=== PATIENT | female | born 1970 | race African-American/Black ===

== ENCOUNTER → 2016-10-15 | Outpatient (CLI) | payer MEDICAID ==
[2016-10-15 11:25] LABS: ALBUMIN 4.2 GM/DL (3.2-5.2); ALBUMIN/GLOBULIN RATIO 1.35 (1.00-1.93); ALKALINE PHOSPHATASE 70 U/L (45-117); ALT/SGPT 14 U/L (12-78); ANION GAP 6 MEQ/L (8-16); AST/SGOT 14 U/L (15-37); BILIRUBIN,TOTAL 0.4 MG/DL (0.2-1.0); BLOOD UREA NITROGEN 11 MG/DL (7-18); CALCIUM LEVEL 8.9 MG/DL (8.5-10.1); CARBON DIOXIDE LEVEL 29 MEQ/L (21-32); CHLORIDE LEVEL 109 MEQ/L (98-107); CHOLESTEROL LEVEL 138 MG/DL (<200); FREE T4 1.03 NG/DL (0.76-1.46); GLOMERULAR FILTRATION RATE > 60.0 (>58); GLUCOSE, FASTING 90 MG/DL (70-105); POTASSIUM SERUM 4.2 MEQ/L (3.5-5.1); SODIUM LEVEL 144 MEQ/L (136-145); TOTAL PROTEIN 7.3 GM/DL (6.4-8.2); TRIGLYCERIDES LEVEL 48 MG/DL (<150)
[2016-10-16 10:33] LABS: FOLLICLE STIMULATING HORMONE 120.6 mIU/mL; LUTEINIZING HORMONE 74.3 mIU/mL
== END ==
LOC: M WUC 08:27
PROVIDERS: ATTEND Nurse Practitioner Family
DX: N92.5 Other specified irregular menstruation (principal); E04.0 Nontoxic diffuse goiter; Z13.220 Encounter for screening for lipoid disorders

== ENCOUNTER → 2017-01-13 | Outpatient (CLI) | payer OTHER ==
--- NOTE | 2017-01-13 16:23 | ECHO ---
DATE OF PROCEDURE: 01/13/2017 REFERRING PHYSICIAN: Iram Bolden MD INDICATION: Systemic hypertension. HEIGHT: 168 cm WEIGHT: 50.8 kg 2D MEASUREMENTS: LVOT: 1.7 cm Left atrium: 1.8 cm Aortic root: 2.5 cm Ventricular septum: 0.78 cm Posterior wall: 0.78 cm Left ventricle diastole: 3.8 cm Inferior vena cava: 0.6 cm (greater than 50% respiratory variation) DOPPLER MEASUREMENTS: Aortic valve velocity: 110 cm/s LVOT velocity: 73.7 cm/s LVOT VTI; 13.7 cm Mitral E velocity: 66.1 cm/s Mitral A velocity: 60.2 cm/s Mitral deceleration time: 289 ms Mild tricuspid regurgitation. Estimated right ventricle systolic pressure: 29 mmHg assuming a right atrial pressure of 5 mmHg. MITRAL ANNULAR TISSUE DOPPLER: E prime septal: 6.0 cm/s E prime lateral: 9.6 cm/s DESCRIPTION: Rhythm was sinus. Image quality was fair. No pericardial effusion. This is a 2D, M-mode, color flow Doppler and pulse wave Doppler examination and included mitral annular tissue Doppler. CONCLUSIONS: 1. Normal left ventricle internal dimensions and wall thickness. Normal regional left ventricle (LV) wall motion and wall thickening. Normal LV systolic function. Left ventricular ejection fraction (LVEF) 70% by visual estimate. Probably normal left ventricle (LV) diastolic function. 2. No Doppler evidence of coarctation of the aorta. The aortic root normal in size at the level of the sinus of Valsalva. 3. Central venous pressure estimated to be 5 mmHg at the time of the study. 4. Otherwise normal appearing echocardiogram Doppler.
== END ==
LOC: M CARPUL 09:16
PROVIDERS: ATTEND Family Medicine
DX: I10 Essential (primary) hypertension (principal)

== ENCOUNTER → 2017-11-24 | Outpatient (CLI) | payer OTHER | LOC: M SMT 08:42 | DX: G62.9 Polyneuropathy, unspecified (principal); M19.012 Primary osteoarthritis, left shoulder | CPT/HCPCS: 73030 ==

== ENCOUNTER → 2018-08-31 | Outpatient (REF) | payer OTHER ==
[2018-08-31 19:02] LABS: BASO % 0.5 % (0.0-1.0); EOS # 0.1 10^3/uL (0.0-0.50); EOS % 1.5 % (0.0-3.0); HEMATOCRIT 31.7 % (36.0-47.0); HEMOGLOBIN 10.2 g/dl (12.0-15.5); LYMPH # 2.5 10^3/uL (1.5-4.5); LYMPH % 30.1 % (24.0-44.0); MEAN CORPUSCULAR HEMOGLOBIN 28.1 pg (27.0-33.0); MEAN CORPUSCULAR HGB CONC 32.2 g/dl (32.0-36.5); MEAN CORPUSCULAR VOLUME 87.3 fl (80.0-96.0); MONO # 0.7 10^3/uL (0.0-0.8); MONO % 8.1 % (0.0-5.0); NEUTROPHILS # 4.9 10^3/uL (1.8-7.7); NEUTROPHILS % 59.3 % (36.0-66.0); PLATELET COUNT, AUTOMATED 341 10^3/uL (150-450); RED BLOOD COUNT 3.63 10^6/uL (4.00-5.40); WHITE BLOOD COUNT 8.2 10^3/uL (4.0-10.0)
[2018-08-31 19:24] LABS: CHOLESTEROL RISK RATIO 2.931 (<5)
[2018-08-31 19:32] LABS: ALBUMIN 3.8 GM/DL (3.2-5.2); ALT/SGPT 19 U/L (12-78); BILIRUBIN,TOTAL 0.2 MG/DL (0.2-1.0); BLOOD UREA NITROGEN 13 MG/DL (7-18); CALCIUM LEVEL 8.9 MG/DL (8.5-10.1); CARBON DIOXIDE LEVEL 27 MEQ/L (21-32); CHLORIDE LEVEL 107 MEQ/L (98-107); CREATININE FOR GFR 1.19 MG/DL (0.55-1.30); FREE T4 0.87 NG/DL (0.76-1.46); GLOMERULAR FILTRATION RATE > 60.0 (>51); GLUCOSE, FASTING 92 MG/DL (70-100); POTASSIUM SERUM 4.1 MEQ/L (3.5-5.1); SODIUM LEVEL 139 MEQ/L (136-145); TOTAL PROTEIN 7.8 GM/DL (6.4-8.2)
[2018-08-31 19:33] LABS: FOLLICLE STIMULATING HORMONE 162.1 mIU/mL; LUTEINIZING HORMONE 84.4 mIU/mL
== END ==
LOC: M SFHCPLAZ 16:08
PROVIDERS: ATTEND Physician Assistant Medical
DX: N95.1 Menopausal and female climacteric states (principal); I10 Essential (primary) hypertension; Z13.220 Encounter for screening for lipoid disorders

== ENCOUNTER → 2018-09-30 | Outpatient (REF) | payer OTHER ==
[2018-10-03 14:37] LABS: HPV HYBRID CAPTURE II Negative (Negative)
== END ==
LOC: M SFHCWAGY 09:15
PROVIDERS: ATTEND Nurse Practitioner Family
DX: Z12.4 Encounter for screening for malignant neoplasm of cervix (principal); Z11.51 Encounter for screening for human papillomavirus (HPV); R87.610 Atypical squamous cells of undetermined significance on cytologic smear of cervix (ASC-US); A59.9 Trichomoniasis, unspecified

== ENCOUNTER 2019-01-11 23:25 | Emergency (ER) | payer OTHER ==
[~2019-01-11] VITALS: Ht 170.2 cm; Wt 50.0 kg
[2019-01-11 23:25] VITALS: BP 183/97
[2019-01-11] MEDS ORDERED: hormone patch (23:34)
[2019-01-11] MEDS ORDERED: PAXI10TA12 PO (23:34)
[2019-01-11] MEDS ORDERED: OMEP10CASR PO (23:34)
[2019-01-11] MEDS ORDERED: BP MEDICINE (23:34)
[2019-01-12] MEDS ORDERED: GI COCKTAIL 50ML BTL(HYOSCYAMINE/MAALOX/LIDOCAINE VISCOUS)(1:3:1) PO ONE (01:15)
[2019-01-12] MEDS ORDERED: ACETAMINOPHEN 325 MG TAB PO ONE (01:15)
[2019-01-12] MEDS ORDERED: METOCLOPRAMIDE 10 MG TAB PO ONE (01:15)
[2019-01-12] MEDS ORDERED: LIDO1SOL8 PO (01:50)
[2019-01-12] MEDS ORDERED: dexameTHASONE 4 MG/ML 1ML VIAL (J1100) PO ONE (02:00)
--- NOTE | 2019-01-12 15:37 | ECGEPIP ---
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
== END 2019-01-12 02:04 | disposition home or self-care (01) ==
LOC: M ED 23:25
DX: J02.8 Acute pharyngitis due to other specified organisms (principal); G44.209 Tension-type headache, unspecified, not intractable; I10 Essential (primary) hypertension; K21.9 Gastro-esophageal reflux disease without esophagitis; Z79.899 Other long term (current) drug therapy
CPT/HCPCS: 87880; 93005; 99284; J1100

== ENCOUNTER → 2019-08-27 | Outpatient (REF) | payer OTHER ==
[~2019-08-27] MED LIST: BP MEDICINE; LIDO1SOL8 PO; OMEP10CASR PO; PAXI10TA12 PO; hormone patch
== END ==
LOC: M SFHCPLAZ 10:38
PROVIDERS: ATTEND Physician Assistant Medical
DX: J06.9 Acute upper respiratory infection, unspecified (principal)

== ENCOUNTER → 2019-10-05 | Outpatient (REF) | payer OTHER ==
[~2019-10-05] MED LIST changes: -LIDO1SOL8 PO; +LIDO2SOL17 PO
[2019-10-05 14:58] LABS: CHLAMYDIA DNA AMPLIFICATION NEGATIVE (NEGATIVE); GC DNA AMPLIFICATION NEGATIVE (NEGATIVE)
== END ==
LOC: M SFHCWAGY 12:54
PROVIDERS: ATTEND Nurse Practitioner Family
DX: Z11.3 Encounter for screening for infections with a predominantly sexual mode of transmission (principal)